=== PATIENT | male | born 1960 | race Caucasian/White ===

== ENCOUNTER 2016-11-09 06:00 | Observation (INO) | payer MEDICAID ==
[~2016-11-09] VITALS: Ht 182.9 cm; Wt 90.7 kg
[2016-11-09] MEDS ORDERED: SODIUM CHLORIDE 0.9% 1,000 ML IV ONE (07:20)
[2016-11-09] MEDS ORDERED: OLANZapine 5 MG TAB PO ONE (07:30)
[2016-11-09] MEDS ORDERED: ALPRAZolam 0.5 MG TAB PO ONE (07:30)
[2016-11-09 08:22] LABS: Basophils # (auto) 0 uL; Basophils % (auto) 0.1 % (0.0-2.0); Eosinophils # (auto) 0 uL; Eosinophils % (auto) 0.1 % (0.0-7.0); Hematocrit 41.6 % (41.0-53.0); Lymphocytes # (auto) 0.6 uL; Lymphocytes % (auto) 8.1 % (10.0-50.0); Mean Corpuscular Hemoglobin 28.8 pg (28.0-32.0); Mean Corpuscular Hgb Conc. 33.7 g/dL (32.0-36.0); Mean Corpuscular Volume 85.4 fL (80.0-100.0); Mean Platelet Volume 8.4 fL (7.4-10.4); Monocytes # (auto) 0.5 uL; Monocytes % (auto) 7.3 % (0.0-12.0); Neutrophils # (auto) 6.2 uL; Neutrophils % (auto) 84.4 % (37.0-80.0); Platelet Count (auto) 288 10^3/uL (140-450); Red Cell Distribution Width 12.9 % (11.6-16.0); White Blood Cell 7.3 10^3/uL (4.4-10.8)
[2016-11-09 08:32] LABS: INR 0.96 (0.9-1.15); Partial Thromboplastin Time 27.9 sec (22.64-33.71); Prothrombin Time 10.5 sec (9.37-12.3)
[2016-11-09 08:53] LABS: Acetaminophen < 2.0 ug/mL (10-30); Salicylate < 1.7 mg/dL (2.8-20.0)
[2016-11-09 09:20] LABS: Albumin 3.3 g/dL (3.4-5.0); Anion Gap 15 (5-15); Aspartate Aminotransferase 33 U/L (15-37); BUN/Creatinine Ratio 20.2; Blood Urea Nitrogen 22 mg/dL (7-18); Calcium 8.7 mg/dL (8.5-10.1); Carbon Dioxide 23 mmol/L (21-32); Chloride 106 mmol/L (98-107); GFR African American 90 mL/min; GFR Non-African American 75 mL/min; Glucose 81 mg/dL (74-106); Potassium 3.9 mmol/L (3.5-5.1); Sodium 144 mmol/L (136-145)
[2016-11-09 09:23] LABS: Alkaline Phosphatase 113 U/L (45-117); Bilirubin, Total 0.2 mg/dL (0.2-1.0); Total Protein 6.3 g/dL (6.4-8.2)
[2016-11-09] MEDS ORDERED: DIVA500T53 PO (18:49)
[2016-11-09] MEDS ORDERED: RISP2TAB62 PO (18:49)
[2016-11-09 19:28] LABS: Urine Bilirubin Negative (Negative); Urine Blood Negative /uL (Negative); Urine Color Yellow (Yellow); Urine Glucose Normal (Normal); Urine Ketone Negative (Negative); Urine Nitrite Negative (Negative); Urine RBC <1 /hpf (0 - 3); Urine Urobilinogen Normal (Negative); Urine pH 6.5 (5.0-8.0)
[2016-11-09] MEDS: risperiDONE 1 MG TAB PO SCH (22:30)
[2016-11-10] MEDS: risperiDONE 1 MG TAB PO SCH ×2 (10:26→22:40)
[2016-11-10] MEDS ORDERED: DOCUSATE SOD 100 MG CAP PO ONE ×2 (15:32→15:45)
[2016-11-10 20:06] LABS: Basophils # (auto) 0 uL; Basophils % (auto) 0.5 % (0.0-2.0); Eosinophils # (auto) 0.2 uL; Eosinophils % (auto) 2.7 % (0.0-7.0); Hematocrit 41.2 % (41.0-53.0); Lymphocytes # (auto) 1.5 uL; Lymphocytes % (auto) 24.2 % (10.0-50.0); Mean Corpuscular Hemoglobin 29.1 pg (28.0-32.0); Mean Corpuscular Hgb Conc. 33.9 g/dL (32.0-36.0); Mean Corpuscular Volume 85.9 fL (80.0-100.0); Mean Platelet Volume 8.1 fL (7.4-10.4); Monocytes # (auto) 0.5 uL; Monocytes % (auto) 9.1 % (0.0-12.0); Neutrophils # (auto) 3.8 uL; Neutrophils % (auto) 63.5 % (37.0-80.0); Platelet Count (auto) 305 10^3/uL (140-450); Red Cell Distribution Width 13.4 % (11.6-16.0)
[2016-11-10 20:21] LABS: Albumin 2.9 g/dL (3.4-5.0); Calcium 8.5 mg/dL (8.5-10.1); Potassium 4.1 mmol/L (3.5-5.1)
[2016-11-10 20:23] LABS: BUN/Creatinine Ratio 10.7
[2016-11-10 20:25] LABS: Bilirubin, Total 0.4 mg/dL (0.2-1.0)
[2016-11-10] MEDS: TEMAZEPAM 15 MG CAP PO SCH (22:40)
[2016-11-11] MEDS: risperiDONE 1 MG TAB PO SCH ×2 (10:36→22:24)
[2016-11-11] MEDS ORDERED: ACETAMINOPHEN 325 MG TAB PO ONE ×2 (16:31→16:45)
[2016-11-11] MEDS ORDERED: risperiDONE 1 MG TAB ONE (22:10)
[2016-11-11] MEDS ORDERED: TEMAZEPAM 15 MG CAP ONE (22:11)
[2016-11-11] MEDS: TEMAZEPAM 15 MG CAP PO SCH (22:24)
[2016-11-12 07:15] VITALS: BP 130/97
== END 2016-11-12 12:51 | disposition home or self-care (01) | DRG 750 ==
LOC: ER 06:00 → EDBD 06:00 → OVERFLOW 07:22 → ER 11-12 12:51
PROVIDERS: ADMIT Emergency Medicine; ATTEND Emergency Medicine
DX: F20.0 Paranoid schizophrenia (principal); E44.1 Mild protein-calorie malnutrition; F19.959 Other psychoactive substance use, unspecified with psychoactive substance-induced psychotic disorder, unspecified; F17.210 Nicotine dependence, cigarettes, uncomplicated; Z79.82 Long term (current) use of aspirin
CPT/HCPCS: 36415; 74000; 80053; 80307; 80329; 81001; 82150; 83690; 83735; 84443; 84484; 85025; 85610; 85730; 93005; 96360; 99285; G0378